=== PATIENT | female | born 1985 | race Caucasian/White ===

== ENCOUNTER 2024-06-18 07:06 | Emergency (ER) | payer SELFPAY ==
[~2024-06-18] VITALS: Ht 157.5 cm; Wt 73.5 kg
[2024-06-18 07:12] VITALS: BP 152/92; PULSE 90; RESP 20; TEMP 98; O2SAT 99
[2024-06-18 07:40] VITALS: O2SAT 99
[2024-06-18] MEDS ORDERED: KETOROLAC 30 MG/ML VIAL IM ONE (07:40)
[2024-06-18] MEDS: ACETAMINOPHEN EXTRA STRENGTH 500 MG TAB PO ONE (08:11)
[2024-06-18 08:12] LABS: MEAN CORPUSCULAR HEMOGLOBIN 27 pg (27-31); MEAN CORPUSCULAR HGB CONC 33 g/dL (33-37); MEAN CORPUSCULAR VOLUME 81.3 fL (80-94)
[2024-06-18 08:14] LABS: BILIRUBIN,URINE NEGATIVE (NEGATIVE); BLOOD, URINE 3+ (NEGATIVE); COLOR,URINE YELLOW (YELLOW); LEUKOCYTE ESTERASE ,URINE 1+ (NEGATIVE); NITRITE, URINE NEGATIVE (NEGATIVE); PROTEIN,URINE NEGATIVE (NEGATIVE); UGLUCOSE NEGATIVE (NEGATIVE); UROBILINOGEN,URINE 0.2 EU/dL (0.2 - 1)
[2024-06-18 08:15] LABS: APPEARANCE,URINE HAZY (CLEAR)
[2024-06-18 08:18] LABS: ANION GAP 10.1 (8-16); CALCIUM 8.8 mg/dL (8.5-10.1); CARBON DIOXIDE 28.5 mmol/L (21-32); CREATININE 0.6 mg/dL (0.6-1.3); POTASSIUM 3.6 mmol/L (3.5-5.1)
[2024-06-18 08:18] LABS: BACTERIA,URINE OCCASSIONAL /HPF (None Seen); RBC,URINE 11-20 (MOD) /HPF (0-5); SQUAMOUS EPITHELIAL CELL,UR 4-10 (MOD) /LPF (0-3 (FEW)); WBC,URINE 0-5 /HPF (0-5)
[2024-06-18 08:24] LABS: ALBUMIN 3.4 g/dL (3.4-5.0); BILIRUBIN,DIRECT 0.1 mg/dL (0.0-0.3); TOTAL BILIRUBIN 0.3 mg/dL (0.0-1.0); TOTAL PROTEIN, SERUM 6.8 g/dL (6.4-8.2)
[2024-06-18] MEDS: KETOROLAC 30 MG/ML VIAL IVP ONE (08:28)
[2024-06-18 08:39] LABS: BASOPHILS % (AUTO) 0.5 % (0.0-2.0); EOSINOPHILS # (AUTO) 0.1 K/uL (0-0.4); EOSINOPHILS % (AUTO) 1.2 % (0.0-4.0); HEMATOCRIT 35.6 % (36-48); HEMOGLOBIN 11.6 g/dL (12.0-16.0); LYMPHOCYTES # (AUTO) 1.2 K/uL (2.5-16.5); LYMPHOCYTES % (AUTO) 14.2 % (20.5-51.1); MONOCYTES # (AUTO) 0.6 K/uL (0.8-1.0); NEUTROPHILS # (AUTO) 6.6 K/uL (1.8-7.7); NEUTROPHILS % (AUTO) 77.1 % (42.2-75.2); PLATELET COUNT (AUTO) 245 K/uL (140-450); RED BLOOD CELL COUNT(AUTO) 4.38 MIL/uL (4.20-5.40); RED CELL DISTRIBUTION WIDTH 13.3 % (11.6-13.7); WHITE BLOOD COUNT (AUTO) 8.6 K/uL (4.8-10.8)
[2024-06-18] MEDS ORDERED: IBUP-1842 PO (09:25)
[2024-06-18] MEDS ORDERED: ACET500T99 PO (09:27)
== END 2024-06-18 09:48 | disposition home or self-care (01) ==
LOC: MED 07:06
DX: N94.6 Dysmenorrhea, unspecified (principal); Z79.899 Other long term (current) drug therapy
CPT/HCPCS: 36415; 80048; 80076; 81001; 81025; 83690; 85025; 87086; 96374; 99283; J1885